=== PATIENT | male | born 1995 | race Asian ===

== ENCOUNTER 2023-05-01 06:24 | Emergency (ER) | payer SELFPAY ==
[2023-05-01 06:28] VITALS: BP 130/82; PULSE 71; RESP 19; TEMP 36.6; O2SAT 100
--- NOTE | 2023-05-01 07:05 | PC.NURSE ---
Bedside report given to MARY Stuart. Pt remains without resp distress.
--- NOTE | 2023-05-01 07:27 | ED.ALLEREA ---
HPI - Allergic Reaction General Chief complaint: Allergic Reaction Stated complaint: facial swelling Time Seen by Provider: 05/01/23 06:54 History of Present Illness HPI narrative: 27-year-old male presenting to the emergency department for evaluation of allergic reaction. Patient initially had the allergic reaction on and presented to the physician on Monday. At that time patient was started on Benadryl and prednisone. Patient states that his last dose of prednisone was yesterday and his last dose of Benadryl was yesterday. Patient woke up this morning with swelling on the left side of his lip. Patient denies any swelling of his tongue denies any chest pain or shortness of breath. Patient is no distress at time of evaluation Patient suspects that the other direction was caused when he changed his laundry detergent. Patient did change back to his original detergent and did re-washed all of his clothes. Related Data Allergies Allergy/AdvReac Type Severity Reaction Status Date / Time No Known Allergies Allergy Verified 05/01/23 06:31 Review of Systems Review of Systems: All systems reviewed & are unremarkable except as noted in HPI and below Exam Narrative: APPEARANCE: Swelling of left lower lip HEAD: normocephalic, atraumatic. EYES: PERRLA/EOMI, conjunctivae clear. NOSE: Normal no drainage EARS:TMS clear with good light reflex. THROAT: Pharynx clear, no exudate. No swelling or edema in the mail with or visualized throat NECK: Supple. No adenopathy, no masses. RESPIRATORY: Airway patent, respirations nonlabored. Clear to auscultation bilaterally, no rales, rhonchi, wheezing. CARDIOVASCULAR: Regular rate and rhythm without murmurs rubs or gallops. ABDOMINAL: Soft, nontender, nondistended, normal bowel sounds MUSCULOSKELETAL: Moves all extremities. Strength/ROM intact, No edema, No calf tenderness. NEURO: Alert. Cranial nerves II through XII intact. Good gait. Good coordination SKIN: Warm, dry. Normal Color Course Course Emergency Course: Patient felt improved with treatment in the ED. Patient's swelling significantly improved. Patient was advised to continue his prednisone and to take his Benadryl more frequently. Vital Signs Vital signs: Vital Signs Temperature 97.8 F 05/01/23 06:28 Pulse Rate 71 05/01/23 06:28 Respiratory Rate 19 05/01/23 06:28 Blood Pressure 130/82 05/01/23 06:28 Pulse Oximetry 100 05/01/23 06:28 Oxygen Delivery Room Air 05/01/23 06:28 Temperature 97.8 F 05/01/23 06:28 Pulse Rate 65 05/01/23 09:17 Respiratory Rate 29 H 05/01/23 09:17 Blood Pressure 117/79 05/01/23 09:17 Pulse Oximetry 100 05/01/23 06:28 Oxygen Delivery Room Air 05/01/23 07:14 MDM - Allergic Reaction MDM Narrative Medical decision making narrative: 27-year-old male presenting to the emergency department for evaluation for a recurrent allergic reaction. Patient did not have any steroid or Benadryl today. While in the emergency department patient was initially treated with IV famotidine, IV Benadryl and IV Solu-Medrol. Patient only had left-sided lip swelling and this did significantly improve with treatment. On re-evaluation patient denies any chest pain shortness of breath and states he does feel improved. Patient was advised to continue his prednisone taper and to increase his Benadryl frequency. All questions concerns were addressed patient was comfortable with plan. Differential Diagnosis Differential diagnosis: Likely anaphylaxis, allergic reaction, angioedema, contact dermatitis, adverse reaction to drug, viral enanthem and urticaria Discharge Plan Discharge Clinical Impression: Allergic reaction Patient Disposition: Home, Self-Care Condition: Stable Instructions: Antibiotic Form, General Allergic Reaction (ED) Additional Instructions: Continue your prednisone as directed and take your prednisone today. You may require Benadryl every 4-6 hours ov
[2023-05-01] MEDS: methylPREDNISolone SOD SUCC 125 MG VIAL IV PUSH (07:31)
[2023-05-01] MEDS: FAMOTIDINE 20 MG/2 ML VIAL IV PUSH (07:31)
[2023-05-01] MEDS: diphenhydrAMINE HCl INJ 50 MG/ML VIAL 25 MG IV PUSH (07:31)
[2023-05-01 09:17] VITALS: BP 117/79; PULSE 65; RESP 29
== END 2023-05-01 10:00 | disposition home or self-care (01) ==
PROVIDERS: Emergency Provider Emergency Medicine
DX: R22.0 Localized swelling, mass and lump, head (principal); T38.0X5A Adverse effect of glucocorticoids and synthetic analogues, initial encounter
CPT/HCPCS: 96374; 96375; 99284; J1200; J2930

== ENCOUNTER 2023-11-03 10:22 | Outpatient (CLI) | payer OTHER, SELFPAY ==
[2023-11-03 10:57] LABS: Hematocrit 45.5 % (42.0-52.0); Hemoglobin 16.7 g/dL (14.0-18.0); Mean Corpuscular HGB Conc 36.7 g/dl (32-36); Mean Corpuscular Hemoglobin 30.6 pg (26-34); Mean Corpuscular Volume 83.5 fl (80-100); Platelet Count Result 238 k/mm3 (150-375); Red Blood Count 5.45 M/mm3 (4.6-6.20); Red Cell Distribution Width 12.2 % (11.5-14.5)
[2023-11-03 11:15] LABS: Alanine Aminotransferase 55 U/L (6-50); Albumin Level 4.4 g/dL (3.5-5.1); Alkaline Phosphatase 61 U/L (38-126); Anion Gap 11 mmol/L (4-12); Aspartate Amino Transferase 31 U/L (17-59); Bilirubin,Total 1.3 mg/dL (0.2-1.3); Blood Urea Nitrogen 10 mg/dL (9-20); Carbon Dioxide 28 mmol/L (22-30); Chloride 101 mmol/L (98-107); Cholesterol 140 mg/dL (0-200); Estimated Glomerular Filt Rate > 60; Glucose 134 mg/dL (65-110); HDL Direct 29 mg/dL; Potassium 3.7 mmol/L (3.4-5.0); Sodium 140 mmol/L (137-145); Triglycerides 168 mg/dL (<150)
[2023-11-03 11:26] LABS: LDL Cholesterol Direct 93 mg/dL
[2023-11-03 12:12] LABS: Hemoglobin A1C 6.1 % (<5.7)
== END 2023-11-03 10:23 | disposition home or self-care (01) ==
LOC: ANHLAB 10:26
PROVIDERS: PCP Family Medicine; Visit Provider Family Medicine
DX: E66.9 Obesity, unspecified (principal); Z76.89 Persons encountering health services in other specified circumstances
CPT/HCPCS: 36415; 80053; 80061; 83036; 85027

== ENCOUNTER 2024-10-25 09:29 | Outpatient (CLI) | payer OTHER, SELFPAY ==
--- OUTSIDE RECORDS SUMMARY | 2023-08-19 16:30 | XMS_ITS ---
Author Organization [employer] [place] ([address]) Address [address] [place] [address] Care Team Providers Care Tube Test Technician Name Role Phone Evelia Palmer Unavailable [phone] [facility], Provider Unavailable Unavailab le REASON FOR VISIT [facility] Encounter Medications Medication SIG (Take, Route, Frequency, Duration) Notes Start Date End Date Status Famotidine 40 MG 1 tab(s) orally twic e a day; Duration: 30 days Active Cetirizine HCl 10 MG 1 tab(s) orally twice a day; Duration: 30 days Active predniSONE 20 MG 1 tab(s) orally once a day; Duration: 5 days 05/10/2023 Active EPINEPHrine 0.3 MG DIRECTED INTRAMUSCULARLY ONCE; Duration: 1 DAYS *Please review and pick correct strength-formulati on from [facility] options. If intended option is not shown, discontinue and re-order from Quick Search* Active Montelukast Sodium 10 MG 1 tab(s) orally once a day; Duration: 30 days Active Encounters Encounter Location Date Provider Diagnosis [facility] [place] [address] [place] [address] 08/19/2023 Provider ZZ-Migration Plan Of Treatment Medication Medication Name Sig Start Date Stop Date Notes Famotidine 40 MG 1 tab(s) orally twic e a day; Duration: 30 days Cetirizine HCl 10 MG 1 tab(s) orally twi ce a day; Duration: 30 days EPINEPHrine 0.3 MG DIRECTED INTRAMUSCULARLY ONCE; Duration: 1 DAYS *Please review and pick correct strength-formulation [facility] options. If intended option is not shown, discontinue and re-order from Quick Search* Montelukast Sodium 10 MG 1 tab(s) orally once a day; Duration: 30 days Progress Notes * TOÑO LivanDOB:1995 (29 yo M)Acc No.[id number]:08/19/2023 Patient: Livan HARRY Provider: Mila Guillory :1995 A ge:27 Y S ex:Male Date:08/19/2023 Address:[facility] [address], [facility] Subjective: * Chief Complaints: * 1 . [facility]. * Medical History: * Medications: T aking Cetirizine HCl 10 MG Tablet 1 tab(s) orally twice a day , Taking Famotidine 40 MG Tablet 1 tab(s) orally twice a day , Taking Montelukast Sodium 10 MG Tablet 1 tab(s) orally once a day , Taking predniSONE 20 MG Tablet 1 tab(s) orally once a day Objective: * Vitals: Assessment: Plan: * Treatment: * Billing Information: * Visit Code: * Procedure Codes: * Electronic signature of Ron BellZ-Migration on 10/25/2024 at 09:32 AM CDT Sign off status: Pending * Provider: Mila Guillory Date: 08/19/2023 Generated for Sofie george/Roger/Nova on: 10/25/2024 09:32 AM CDT
--- OUTSIDE RECORDS SUMMARY | 2024-02-06 12:30 | XMS_ITS ---
Author Organization [facility] [place] ([address]) Address [address] [place] [address] Care Team Providers Care Quality Assurance Calibrator Name Role Phone Evelia Palmer Unavailable [phone] REASON FOR VISIT [facility] follow-up Encounters Encounter Location Date Provider Diagnosis [facility] - [place] [address] [place] [address] 02/06/2024 Evelia Palmer Plan Of Treatment No Information Progress Notes * PENALivan MAYADOB:1995 (29 yo M)Acc No.[id number]:02/06/2024 Progress Notes Patient: Livan HARRY Provider: Hemant Palmer MD :1995 A ge:28 Y S ex:Male Date:02/06/2024 Address:[address] [facility] Subjective: * Chief Complaints: * 1 . [facility] follow-up. * Medical History: Objective: * Vitals: Assessment: Plan: * Treatment: * Billing Information: * Visit Code: * Procedure Codes: * Electronic signature of Alexandra Palmer MD on 10/25/2024 at 09:32 AM CDT Sign off status: Pending * Provider: Hemant Palmer MD Date: 1 04/08/2023 Generated for Printi ng/Fabinhg/eTransmitting on: 0 10/25/2024 09:32 AM CDT
--- OUTSIDE RECORDS SUMMARY | 2024-10-25 09:32 | XMS_ITS | Patient Health Record ---
Author Organization [employer] [place] ([address]) Address [address] [place] [address] Care Team Providers Care Porcelain Enamel Sprayer Name Role Phone Evelia Palmer Unavailable [phone] Allergies No Known Allergies Reason For Referral No Information Medications Medication SIG (Take, Route, Frequency, Duration) Notes Start Date End Date Status CETIRIZINE 10 mg 1 tab(s) orally twic e a day; Duration: 30 days Active Montelukast Sodium 10 MG 1 tab(s) orally once a day; Duration: 30 days Active Famotidine 40 MG 1 tab(s) orally twic e a day; Duration: 30 days Active MONTELUKAST 10 mg 1 tab(s) orally once a day; Duration: 30 days Active Cetirizine HCl 10 MG 1 tab(s) orally twice a day; Duration: 30 days Active FAMOTIDINE 40 mg 1 tab(s) orally twic e a day; Duration: 30 days Active predniSONE 20 MG 1 tab(s) orally once a day; Duration: 5 days 05/10/2023 Active EPINEPHRINE 0.3 mg as directed intramuscularly once; Duration: 1 days Active EPINEPHrine 0.3 MG DIRECTED INTRAMUSCULARLY ONCE; Duration: 1 DAYS *Please review and pick correct strength-formulati on from [employer] options. If intended option is not shown, discontinue and re-order from Quick Search* Active Social History Tobacco Use: Social History Observation Description Date Details (start date - stop date) Never Smoker NA - NA Smoking Smart Form: Question Answer Notes Are you a: never smoker Tobacco Control (Standard) Question Answer Notes Tobacco use: Nonsmoker Problems Problem Type SNOMED Code ICD Code Onset Dates Problem Status W/U Status Risk Notes Problem Other chronic allergic conjunctivitis (H10.45) Active confirmed Problem Allergic rhinitis caused by pollen (disorder) (50455902) Allergic rhinitis due to pollen (J30.1) Active confirmed Problem Allergic rhinitis (82731858) Other allergic rhinitis (J30.89) Active confirmed Problem Chronic rhinitis (86208862) Chronic rhinitis (J31.0) Active confirmed Problem Uncomplicated mild persistent asthma (901287737) Mild persistent asthma, uncomplicated (J45.30) Active confirmed Problem Uncomplicated moderate persistent asthma (555548186) Moderate persistent asthma, uncomplicated (J45.40) Active confirmed Problem Uncomplicated severe persistent asthma (127113484) Severe persistent asthma, uncomplicated (J45.50) Active confirmed Problem Allergic rhinitis caused by animal hair and dander (748453858001539) Allergic rhinitis due to animal (cat) (dog) hair and dander (J30.81) Active confirmed Plan Of Treatment No Information Medical (General) History Medical History History ICD Code Angioneurotic edema, initial encounter T 78.3XXA Hospitalization History Reason Date(Month/Year) anaphylaxis
[2024-10-25 10:09] LABS: Hematocrit 40.3 % (42.0-52.0); Hemoglobin 14.6 g/dL (14.0-18.0); Immature Granulocyte Percent A 0.3 % (0-0.5); Lymphocytes Absolute Auto 2.35 K/mm3 (0.9-3.2); Mean Corpuscular HGB Conc 36.2 g/dl (32-36); Mean Corpuscular Hemoglobin 30.5 pg (26-34); Mean Corpuscular Volume 84.1 fl (80-100); Nucleated Red Blood Cells Absolute Auto 0.000 K/mm3 (0.0-0.012); Nucleated Red Blood Cells Perc 0.0 % (0.0-0.2); Platelet Count Result 289 k/mm3 (150-375); Red Blood Count 4.79 M/mm3 (4.6-6.20); White Blood Count 9.2 K/mm3 (4.5-10.0)
[2024-10-25 10:19] LABS: Hemoglobin A1C 5.4 % (<5.7)
[2024-10-25 11:02] LABS: Alanine Aminotransferase 41 U/L (6-50); Albumin Level 4.4 g/dL (3.5-5.1); Alkaline Phosphatase 58 U/L (38-126); Anion Gap 10 mmol/L (4-12); Aspartate Amino Transferase 36 U/L (17-59); Bilirubin,Total 1.4 mg/dL (0.2-1.3); Blood Urea Nitrogen 12 mg/dL (9-20); Calcium 8.8 mg/dL (8.4-10.2); Carbon Dioxide 21 mmol/L (22-30); Chloride 108 mmol/L (98-107); Cholesterol 153 mg/dL (0-200); Estimated Glomerular Filt Rate > 60; Glucose 109 mg/dL (65-110); HDL Direct 32 mg/dL; Potassium 3.7 mmol/L (3.4-5.0); Sodium 139 mmol/L (137-145); Total Protein 7.4 g/dL (6.3-8.2); Triglycerides 110 mg/dL (<150)
== END 2024-10-25 09:30 | disposition home or self-care (01) ==
LOC: ANHLAB 09:30
PROVIDERS: PCP Family Medicine; Visit Provider Family Medicine
DX: R73.03 Prediabetes (principal); E66.9 Obesity, unspecified; R74.01 Elevation of levels of liver transaminase levels; Z00.00 Encounter for general adult medical examination without abnormal findings
CPT/HCPCS: 36415; 80053; 80061; 82248; 83036; 85025